=== PATIENT | male | born 1950 | race Caucasian/White ===

== ENCOUNTER → 2017-05-15 | Outpatient (CLI) | payer OTHER ==
[~2017-05-15] MED LIST: ACET-1256 PO; ALPR-411 PO; AMLO-110 PO; ASPI325T39 PO; CHOL20007 PO; CYAN100020 PO; MULT-190 PO; NAPR-1169 PO; PRAV20TA PO
== END | disposition home or self-care (01) ==
LOC: C.CTS 10:35
PROVIDERS: ATTEND Orthopaedic Surgery
DX: M75.102 Unspecified rotator cuff tear or rupture of left shoulder, not specified as traumatic (principal)

== ENCOUNTER 2017-06-16 04:59 | Inpatient (IN) | payer OTHER ==
[2017-05-15 11:47] VITALS: BMI 33.0
--- NOTE | 2017-05-15 12:24 | PAT Medication Instructions ---
Service Date May 15, 2017. Current Home Medication List Acetaminophen (Tylenol), 1,000 MG PO PRN Alprazolam (Xanax), 0.5 MG PO QID PRN for RN Amlodipine (Norvasc), 5 MG PO QPM Aspirin (Aspirin Ec), 325 MG PO PRN Cholecalciferol (Vitamin D3), 1 TAB PO QAM Cyanocobalamin (Vitamin B12), 500-1,000 MCG PO QAM Naproxen (Naprosyn), 500 MG PO BID Ocuvite Preservision (Ocuvite Preservision), 1 TAB PO QAM Pravastatin (Pravachol ), 80 MG PO HS Medication Instructions For Your Scheduled Surgery - Per surgeon's instructions: Aspirin (Aspirin Ec), 325 MG PO PRN Naproxen (Naprosyn), 500 MG PO BID - Hold the following medications the morning of surgery: Ocuvite Preservision (Ocuvite Preservision), 1 TAB PO QAM Cholecalciferol (Vitamin D3), 1 TAB PO QAM Cyanocobalamin (Vitamin B12), 500-1,000 MCG PO QAM - Take the following medications the morning of surgery with a sip of water OTHERWISE NOTHING TO EAT OR DRINK AFTER MIDNIGHT: Acetaminophen (Tylenol), 1,000 MG PO PRN (may take if needed up to 4 hours prior to surgery) Alprazolam (Xanax), 0.5 MG PO QID PRN - Take the following medications as scheduled the night before surgery: Pravastatin (Pravachol ), 80 MG PO HS Amlodipine (Norvasc), 5 MG PO QPM Acetaminophen (Tylenol), 1,000 MG PO PRN Alprazolam (Xanax), 0.5 MG PO QID PRN If you have any questions please call us at [phone] or [phone] or [phone]
--- NOTE | 2017-05-15 13:01 | DIAGNOSTIC IMAGING REPORT ---
CHEST 2 VIEWS ROUTINE CLINICAL HISTORY: pat preoperative evaluation COMPARISON STUDY: No previous studies for comparison. FINDINGS: The bones soft tissues and hemidiaphragms are normal. The cardiomediastinal silhouette is normal. The lungs are clear. The pulmonary vasculature is normal. IMPRESSION: Negative chest. The above report was generated using voice recognition software. It may contain grammatical, syntax or spelling errors. Electronically signed by: Cesar Garcia M.D. 05/15/2017 1:00 PM Dictated Date/Time: 05/15/2017 12:59 PM
[2017-05-15 13:19] LABS: URINE APPEARANCE CLEAR (CLEAR); URINE BILIRUBIN NEG (NEG); URINE COLOR YELLOW; URINE NITRITE NEG (NEG); URINE SPECIFIC GRAVITY 1.007 (1.000-1.030); UROBILINOGEN NEG (NEG)
[2017-05-15 13:20] LABS: BASO % 0.1 %; BASO ABS # 0.01 K/uL (0-0.2); COMPLETE YES; EOS % 1.6 %; HEMATOCRIT 42.7 % (42-52); IG% 0.2 %; LYMPH % 34.7 %; LYMPH ABS # 2.82 K/uL (1.2-3.4); MEAN CELL VOLUME 95.1 fL (80-100); MEAN CORPUSCULAR HEMOGLOBIN 30.3 pg (25-34); MEAN CORPUSCULAR HGB CONC 31.9 g/dl (32-36); MONO % 5.8 %; NEUT % 57.6 %; PLATELET COUNT 298 K/uL (130-400); RED BLOOD COUNT 4.49 M/uL (4.7-6.1); WHITE BLOOD COUNT 8.12 K/uL (4.8-10.8)
[2017-05-15 13:30] LABS: MANUAL MICROSCOPIC REQUIRED? NO; REVIEW REQ? NO
[2017-05-15 13:31] LABS: BUN/CREATININE RATIO 9.4 (10-20); CALCIUM 9.8 mg/dl (8.5-10.1); CREATININE 0.97 mg/dl (0.60-1.40); POTASSIUM 4.3 mmol/L (3.5-5.1)
[2017-05-15 13:42] LABS: INR 1.1 (0.9-1.1); PROTHROMBIN TIME (PATIENT) 11.7 SECONDS (9.0-12.0)
--- NOTE | 2017-06-15 18:31 | HISTORY & PHYSICAL EXAMINATION ---
DATE OF ADMISSION: 06/16/2017 CHIEF COMPLAINT: Left rotator cuff arthropathy. HISTORY OF PRESENT ILLNESS: Rigoberto is a pleasant 67-year-old retired male. He has been dealing with chronic bilateral shoulder pain for several years. [facility] and has been told that he had bilateral massive rotator cuff tears. His left shoulder is more symptomatic than his right. MRI of his left shoulder showed chronic full thickness tears and x-rays were diagnostic for rotator cuff arthropathy. After failing years of conservative treatment, he has elected to proceed with a reverse left total shoulder arthroplasty. PAST MEDICAL HISTORY: Significant for depression, hyperlipidemia, and hypertension. MEDICATIONS: Tylenol 1000 mg as needed, Xanax 0.5 mg 4 times a day, Norvasc 5 mg daily, aspirin 325 mg as needed, vitamin D 2000 units daily, vitamin B12 at 1000 mcg daily, Naprosyn 500 mg twice a day, Pravachol 80 mg at night and multivitamin. PAST SURGICAL HISTORY: Significant for 2 previous hernia repairs. ALLERGIES: ZOCOR. FAMILY HISTORY: Negative for heart disease and stroke. SOCIAL HISTORY: He is . He has 1-2 drinks a week. He smokes a pack of cigarettes a day. He is moderately active. REVIEW OF SYSTEMS: He complains of left shoulder pain and weakness. All other pertinent review of systems are negative. PHYSICAL EXAMINATION: GENERAL: He is awake, alert and oriented x3. He is in no apparent distress. He is very pleasant. HEENT: Pupils are equal, round and reactive to light. Extraocular motion intact. Oral mucosa is pink and moist. HEART: Regular rate per radial pulse. LUNGS: Jessica symmetrically bilaterally with no audible breath sounds. ABDOMEN: Soft, nontender, and nondistended. MUSCULOSKELETAL: On physical examination of the left shoulder, he has good range of motion with about 160 degrees of forward elevation and 160 degrees of abduction. He has 3/5 muscle strength with full can testing and 4/5 muscle strength with external rotation. Negative belly press test. Significant tenderness to palpation in the subacromial space. Positive Neer and Bone impingement signs. IMAGING DATA: X-rays of the left shoulder do show advanced rotator cuff arthropathy with superior migration of the humeral head and joint space narrowing and some osteophyte formation. MRI of the left shoulder shows a chronic full thickness tear involving the supraspinatus and subscapularis tendons with significant muscle atrophy. IMPRESSION: Rotator cuff arthropathy of the left shoulder. PLAN: We will proceed with a Biomet comprehensive reverse left total shoulder arthroplasty. Postoperatively, he will be placed in an arm sling and kept overnight for postoperative medical management.
[2017-06-16] VITALS (10 sets, daily range): BP systolic 98–134; BP diastolic 59–82; PULSE 62–81; TEMP 36.4–36.8; O2SAT 93–97; Ht 162.6 cm; Wt 87.5 kg
[~2017-06-16] VITALS: Ht 162.6 cm; Wt 87.5 kg
[2017-06-16] MEDS ORDERED: GABAPENTIN 300 MG CAP PO SCH (06:00)
[2017-06-16] MEDS ORDERED: CEFAZOLIN 2000MG IV PUSH 10 ML IV SCH (06:00)
[2017-06-16] MEDS ORDERED: LACTATED RINGER'S 1000ML IV SCH (06:00)
[2017-06-16] MEDS ORDERED: LACTATED RINGER'S 1000ML 1,000 ML IV SCH (06:00)
[2017-06-16] MEDS ORDERED: ACETAMINOPHEN 500 MG TAB PO SCH (06:00)
[2017-06-16] MEDS ORDERED: ROPIVACAINE 5MG/ML 30 ML 150 MG, BUPIVACAINE/EPINEPHR 0.5% MPF 30 ML, KETOROLAC TROMETH... INFIL SCH ×7 (06:00)
[2017-06-16] MEDS ORDERED: FAMOTIDINE 20 MG TAB PO SCH (06:00)
[2017-06-16] MEDS: TRANEXAMIC ACID INJ 1,000 MG in SODIUM CHLORIDE 0.9% 100ML 100 ML IV SCH ×2 (06:16→06:30)
[2017-06-16] MEDS ORDERED: ORTHO JOINT ANESTHETIC ONE (06:35)
[2017-06-16] MEDS ORDERED: BUPIVACAINE 0.25% 30 ML VIAL ONE (06:35)
[2017-06-16] MEDS ORDERED: EpINEphrine INJ 1MG/ML AMP 1 MG/ML AMP ONE (06:35)
[2017-06-16] MEDS ORDERED: BACITRACIN 50000 UNIT VIAL ONE (06:35)
[2017-06-16] MEDS ORDERED: DEXAMETHASONE SOD INJ 4 MG/ML VIAL ONE ×2 (06:35→07:40)
[2017-06-16] MEDS ORDERED: MIDAZOLAM HCL 1 MG/ML 2ML VIAL ONE (06:38)
[2017-06-16] MEDS ORDERED: FENTANYL CITRATE INJ 50 MCG/1 ML 2 ML VIAL ONE ×2 (06:43→07:37)
--- NOTE | 2017-06-16 06:50 | History & Physical Bridge Note ---
H&P Re-Evaluation Bridge Note: I have examined the patient, reviewed the History & Physical and in the interval since the performance of the History & Physical I have noted the following changes of clinical significance: No changes noted
[2017-06-16] MEDS ORDERED: ROCURONIUM BROMIDE 10 MG/ML 5 ML VIAL IV ONE (07:40)
[2017-06-16] MEDS ORDERED: PROPOFOL IV EMULSION 10 MG/ML 20 ML VIAL IV ONE (07:40)
[2017-06-16] MEDS ORDERED: PHENYLEPHRINE 100MCG/ML 5ML SYR ONE (07:40)
[2017-06-16] MEDS ORDERED: ONDANSETRON INJ 2 MG/ML 2 ML VIAL ONE (07:40)
[2017-06-16] MEDS ORDERED: HYDROmorphone INJ 2 MG/ML SYR/VIAL ONE (07:58)
[2017-06-16] MEDS ORDERED: SODIUM CHLORIDE 0.9% INJ 10 ML VIAL ONE (08:05)
[2017-06-16] MEDS ORDERED: FENTANYL CITRATE INJ 50 MCG/1 ML 2 ML VIAL IV PRN (08:15)
[2017-06-16] MEDS ORDERED: ONDANSETRON INJ 2 MG/ML 2 ML VIAL IV PRN ×2 (08:15→08:30)
[2017-06-16] MEDS ORDERED: EpHEDrine SULFATE INJ 50 MG/ML AMP IV PRN (08:15)
[2017-06-16] MEDS ORDERED: ATROPINE SULFATE 0.1 MG/ML 5ML SYR IV PRN (08:15)
[2017-06-16] MEDS ORDERED: HYDROmorphone INJ 1 MG/ML SYR IV PRN (08:15)
[2017-06-16] MEDS ORDERED: PROMETHAZINE HCL INJ 6.25 MG in SODIUM CHLORIDE 0.9% 50ML 50 ML IV PRN (08:15)
[2017-06-16] MEDS ORDERED: NEOSTIGMINE METHYLSULFATE 5 MG/5 ML SYR ONE (08:17)
[2017-06-16] MEDS ORDERED: GLYCOPYRROLATE INJ 0.2 MG/ML VIAL ONE (08:17)
--- NOTE | 2017-06-16 08:25 | [facility] Post Operative Brief Note ---
Immediate Operative Summary Operative Date Jun 16, 2017. Pre-Operative Diagnosis Rotator Cuff Arthropathy of the Left Shoulder Post-Operative Diagnosis Rotator Cuff Arthropathy of the Left Shoulder Procedure(s) Performed Left Reverse Total Shoulder Arthroplasty--Uncemented Surgeon Dr. Guaman Utilization Management Manager Surgeon(s) MERVIN Crews Estimated Blood Loss 150 ml Findings as above Specimens A. Portion of Left Humeral Head Complication(s) None Disposition Recovery Room / PACU
[2017-06-16] MEDS ORDERED: SOD PHOSPHATE/SOD BIPHOSPHATE ENEMA 132 ML BTL PR PRN (08:30)
[2017-06-16] MEDS ORDERED: OXYCODONE HCL IR 5 MG TAB (IMMEDIATE RELEASE) PO PRN (08:30)
[2017-06-16] MEDS ORDERED: ALPRAZOLAM 0.5 MG TAB PO PRN (08:30)
[2017-06-16] MEDS ORDERED: MAGNESIUM HYDROXIDE SUSP 30 ML UDC PO PRN (08:30)
[2017-06-16] MEDS ORDERED: METOCLOPRAMIDE HCL INJ 5 MG/ML 2 ML VIAL IV PRN (08:30)
[2017-06-16] MEDS ORDERED: MoRPHine SULFATE 2 MG/ML CARP IV PRN (08:30)
[2017-06-16] MEDS ORDERED: NALOXONE HCL 0.4 MG/1 ML VIAL/CARP IV PRN (08:30)
[2017-06-16] MEDS ORDERED: ASPIRIN 325 MG ECTAB PO SCH (08:30)
[2017-06-16] MEDS ORDERED: BISACODYL 10 MG SUPP PR PRN (08:30)
--- NOTE | 2017-06-16 08:47 | OPERATIVE REPORT ---
DATE OF OPERATION: 06/16/2017 PREOPERATIVE DIAGNOSIS: Cuff arthropathy of the left shoulder. POSTOPERATIVE DIAGNOSIS: Same. PROCEDURE: Reverse left total shoulder arthroplasty. SURGEON: Dr. Martin Guaman. SCULLION CHIEF: Chacho Grewal PA-C, whose assistance was necessary for positioning the arm and helping with retraction. ANESTHESIA: General with a left interscalene nerve block. COMPLICATIONS: None. CONDITION: Stable to PACU. IMPLANTS USED: I used a Biomet comprehensive left reverse shoulder arthroplasty system with a size 12 mini pressfit stem, a 25 mm mini baseplate with a single 35 mm central screw, and 2 peripheral locking screws, a 36 mm standard eccentric glenosphere and a standard humeral tray and bearing. INDICATIONS: Rigoberto is a pleasant 67-year-old male who presented to my office with bilateral shoulder pain. The left was worse than the right. X-rays showed advanced cuff arthropathy of the right side but the left side did not look bad on x-ray. I got MRI showed a chronic retracted tear of the subscapularis and supraspinatus. After failing extensive conservative treatment including multiple injections given his pain levels we elected to proceed with a reverse shoulder arthroplasty. OPERATION AND FINDINGS: On 06/16/2017 he arrived at [facility] for the above procedure. He was seen in the preoperative holding area and the operative extremity was identified and signed. He was given a preoperative antibiotic and a left interscalene nerve block. He was taken back to the operating room, laid on the table in supine position and put under general anesthesia. He was put into the beachchair position. The left shoulder was prepped and draped in sterile fashion. Time-out was done and the patient and operative extremity was properly identified. A deltopectoral approach was used. Dissection was taken down through the fascia and the anterior shoulder was exposed. The long head of the biceps tendon was tenodesed to the upper border of the pec major. What was left of the subscapularis was peeled off the lesser tuberosity. The supraspinatus had been torn. The infraspinatus and teres minor were intact. The proximal humerus was exposed. Sequential reaming up to a size 12 reamer was done. Off that reamer, a proximal humeral resection guide was placed and the proximal humerus was resected at 135 degrees of inclination and 20 degrees of retroversion. The glenoid was then exposed. Time was spent doing a complete circumferential capsular and labral release. The Biomet signature guide was then snapped onto the anterior aspect of the glenoid and a guide pin was placed in reverse shoulder arthroplasty hole. A 25 mm mini base plate was then reamed and the final baseplate was impacted into place. A 35 mm central screw was placed followed by superior and inferior locking screws. All screws got excellent purchase. A 36 mm eccentric glenosphere was then impacted into place. The proximal humerus was then exposed. Sequential broaching up to a size 12 broach was done. Off that broach, a standard humeral tray was placed. The shoulder was reduced, brought through a full range of motion and felt to be stable. The trials were then removed and the final size 12 mini implant was impacted into place. A standard humeral bearing was snapped onto a humeral tray and the ring lock mechanism was engaged. The humeral tray was then impacted onto the humeral stem and the shoulder was reduced. The subscapularis was then tenodesed back to the lesser tuberosity with transosseous FiberWire sutures. All surrounding soft tissues were injected with 100 mL orthopedic pain control cocktail. The joint was then irrigated with 3 liters of normal saline solution with bacitracin. The shoulder was brought through a full range of motion and felt good. The axillary nerve was palpated. Hemostasis was controlled. The cephalic vein was intact. The skin was then closed with 2-0 Vicryl and 3-0 V-Loc suture and sourav. He was placed in a soft dressing and a regular arm sling. He was then extubated, transferred to a litter and taken to the postanesthesia care unit in stable condition. He tolerated the procedure well. I attest to the content of the Intraoperative Record and any orders documented therein. Any exception s are noted below.
--- NOTE | 2017-06-16 09:25 | DIAGNOSTIC IMAGING REPORT ---
L SHOULDER MIN 2 VIEWS ROUTINE CLINICAL HISTORY: Post shoulder surgery COMPARISON STUDY: Left shoulder CT 05/15/2017. FINDINGS: The patient is status post a reverse left total shoulder arthroplasty. The hardware is intact. No fracture or dislocation. Skin sourav and surgical drains are in place. IMPRESSION: Status post reverse left total shoulder arthroplasty. No evidence for hardware complication. Electronically signed by: Shimon Rogers M.D. 06/16/2017 9:24 AM Dictated Date/Time: 06/16/2017 9:23 AM
[2017-06-16] MEDS ORDERED: ASPIRIN 325 MG ECTAB PO PRN (10:00)
--- NOTE | 2017-06-16 10:06 | Anesthesiology Progress Note ---
Anesthesia Post Op Note Date & Time Jun 16, 2017 at 10:05 Vital Signs Pain Intensity: 0 Vital Signs Past 12 Hours Date Time Temp Pulse Resp B/P (MAP) Pulse Ox O2 Delivery O2 Flow Rate FiO2 06/16/17 09:25 36.4 64 20 103/63 95 Nasal Cannula 2 06/16/17 09:15 70 22 105/64 94 Nasal Cannula 2 06/16/17 09:05 61 24 104/58 97 Oxymask 10 06/16/17 08:55 66 16 113/67 97 Oxymask 10 06/16/17 08:46 36.8 71 21 118/60 94 Oxymask 10 06/16/17 05:34 36.4 62 18 134/82 97 Room Air Notes Mental Status: alert / awake / arousable, participated in evaluation Pt Amnestic to Procedure: Yes Nausea / Vomiting: adequately controlled Pain: adequately controlled Airway Patency, RR, SpO2: stable & adequate BP & HR: stable & adequate Hydration State: stable & adequate Neuraxial Anesthesia: was administered, sensory block is resolving Anesthetic Complications: no major complications apparent Block working well in pacu
[2017-06-16] MEDS: POTASSIUM CHLORIDE INJ 10 MEQ in SODIUM CHLORIDE 0.9% 1000ML 1,000 ML IV SCH ×2 (10:40→20:48)
[2017-06-16] MEDS: DOCUSATE SODIUM 100 MG CAP PO SCH ×2 (10:40→20:49)
[2017-06-16] MEDS: CHOLECALCIFEROL 1000 INTER.UNIT TAB PO SCH (10:40)
[2017-06-16] MEDS: PANTOprazole SOD 40 MG TAB PO SCH (10:41)
[2017-06-16] MEDS: MULTIVITAMIN TAB PO SCH (10:41)
[2017-06-16] MEDS: KETOROLAC TROMETHAMINE 30 MG/ML VIAL IV. SCH ×3 (11:41→23:28)
[2017-06-16] MEDS: ACETAMINOPHEN IV 1,000 MG in EMPTY BAG 0 ML IV SCH ×2 (13:36→22:18)
[2017-06-16] MEDS: CEFAZOLIN IV 2,000 MG in SYRINGE 0 ML IV SCH ×2 (14:11→22:46)
[2017-06-16] MEDS ORDERED: AMLODIPINE BESYLATE 5 MG TAB PO SCH (21:00)
[2017-06-16] MEDS ORDERED: PRAVASTATIN SOD 40 MG TAB PO SCH (21:00)
[2017-06-16] MEDS ORDERED: SENNA 8.6 MG TAB PO SCH (21:00)
[2017-06-17 03:55] VITALS: BP 118/67; PULSE 71; TEMP 36.8; O2SAT 96
[2017-06-17 06:07] LABS: HEMATOCRIT 32.8 % (42-52); MEAN CELL VOLUME 92.7 fL (80-100); MEAN CORPUSCULAR HEMOGLOBIN 31.1 pg (25-34); MEAN CORPUSCULAR HGB CONC 33.5 g/dl (32-36); MEAN PLATELET VOLUME 11.2 fL (7.4-10.4); PLATELET COUNT 208 K/uL (130-400); RED BLOOD COUNT 3.54 M/uL (4.7-6.1); WHITE BLOOD COUNT 17.48 K/uL (4.8-10.8)
[2017-06-17] MEDS: KETOROLAC TROMETHAMINE 30 MG/ML VIAL IV. SCH (06:24)
[2017-06-17] MEDS: ACETAMINOPHEN IV 1,000 MG in EMPTY BAG 0 ML IV SCH (06:24)
[2017-06-17 06:35] LABS: BUN/CREATININE RATIO 15.8 (10-20); CALCIUM 8.5 mg/dl (8.5-10.1); CREATININE 0.93 mg/dl (0.60-1.40)
[2017-06-17] MEDS: POTASSIUM CHLORIDE INJ 10 MEQ in SODIUM CHLORIDE 0.9% 1000ML 1,000 ML IV SCH (07:23)
[2017-06-17] MEDS ORDERED: RXC5 PO (07:32)
--- NOTE | 2017-06-17 07:33 | Discharge Instructions ---
Discharge Instructions Date of Service Jun 17, 2017. Admission Reason for Admission: Left Shoulder Rotator Cuff Arthropathy Discharge Discharge Diagnosis / Problem: Left Reverse Total Shoulder Discharge Goals Goal(s): Decrease discomfort, Improve function Activity Recommendations Activity Limitations: as noted below . Instructions / Follow-Up Instructions / Follow-Up Activity and Therapy Recommendations: * Wear your sling for 3 weeks, unless otherwise instructed. You may remove your sling to shower and to dress, but otherwise, you should be in your sling at all times, including while sleeping * The shoulder replacement is very stable and you can use your hand while in the sling * Physical Therapy should start about 3-5 days from your day of surgery. Therapy will last about 8-12 weeks * You were shown a series of exercises in the hospital. Do these exercises daily including the exercises you were shown in physical therapy. Medications: * Narcotic You will likely be sent home from the hospital with a prescription for the narcotic pain medication that worked best throughout your stay. * Other medications may be prescribed for specific circumstances. If you have any questions, please call the office at . * Resume previous home medications unless otherwise instructed Showering: You may shower 5 days from the day of surgery. Let the soapy shower water run over the sourav. Do not scrub or soak the incision. Things To Watch For: * Drainage from the incision site that occurs more than one week after your surgery. * Increased redness at the incision site. * Fever above 102 degrees Fahrenheit. * Unusual chest pain or shortness of breath. * Call [facility] at with any of the above problems Follow-Up Visit: Follow-up with Dr. Guaman 2-3 weeks after your day of surgery. An appointment was probably scheduled when you signed-up for surgery in the office. If you have any questions call Office Instructions: More detailed instructions as well as Frequently Asked Questions were provided in a folder by our office when you signed-up for surgery. Please review these instructions when you get home. If you have any further questions or concerns, please feel free to call the office at [phone] Current Hospital Diet Patient's current hospital diet: Regular Diet Discharge Diet Recommended Diet: Regular Diet Procedures Procedures Performed: Left Reverse Total Shoulder Arthroplasty--Uncemented Pending Studies Studies pending at discharge: no Medical Emergencies . Who to Call and When: Medical Emergencies: If at any time you feel your situation is an emergency, please call 911 immediately. . Non-Emergent Contact Non-Emergency issues call your: Surgeon Call Non-Emergent contact if: wound has increased drainage, wound has increased redness . "Provider Documentation" section prepared by Martin Guaman. . VTE Core Measure Inpt VTE Proph given/why not?: Treatment not indicated
[2017-06-17 07:42] VITALS: BP 108/64; PULSE 51; TEMP 36.8; O2SAT 96
--- NOTE | 2017-06-17 07:57 | PROGRESS NOTE ---
DATE: 06/17/2017 CHIEF COMPLAINT: Status post reverse left shoulder arthroplasty postop day #1. PROGRESS: Rigoberto was seen and examined at bedside today. Overall, he is doing very well. He says he really has no pain in his shoulder. He was able to get some sleep last night. He is feeling good and has no complaints. PHYSICAL EXAMINATION: LEFT SHOULDER: The dressing is clean and dry and the drain is to suction. He is wearing sling as instructed. His radial, median and ulnar nerves were checked and intact at his wrist. His axillary nerve was not checked yet. LABORATORY DATA: He has an H&H today of 11.0 and 32.8. His glucose is 152. His vital signs are all stable on room air. He is voiding on his own. X-rays postoperatively of the left shoulder show the prosthesis to be in anatomic alignment without any evidence of fracture, dislocation or loosening. IMPRESSION: Status post reverse left shoulder arthroplasty postop day #1. PLAN: At this point, he is doing very well and happy with his progress. He will be seen by physical therapy today to do hand, wrist, elbow and pendulum exercises. The nursing staff can change the dressing, pull the drain and discharge him to home later this morning.
--- NOTE | 2017-06-17 08:03 | DISCHARGE SUMMARY ---
DISCHARGE DIAGNOSIS: Rotator cuff arthropathy of the left shoulder. PROCEDURE: Left reverse shoulder arthroplasty on 06/16/[address] Martin Guaman. DISCHARGE INSTRUCTIONS: 1. Oxycodone 5-10 mg every 4 hours as needed for pain. 2. Left arm sling for 3 weeks. 3. Follow up with Dr. Guaman in 2 weeks. 4. Call the office of Dr. Guaman with any questions or concerns. 5. Tylenol 1000 mg as needed. 6. Xanax 0.5 mg 4 times a day as needed. 7. Norvasc 5 mg daily. 8. Aspirin 325 mg as needed. 9. Vitamin D 2000 units daily. 10. Vitamin B12 at 1000 mcg daily. 11. Naprosyn 500 mg twice a day. 12. Ocuvite daily. 13. Pravachol 80 mg at night. HOSPITAL COURSE: Rigoberto is a pleasant 67-year-old male who presented to my office with chronic bilateral shoulder pain, left worse than right. X-rays and MRI of the left shoulder were diagnostic for cuff arthropathy with unrepairable rotator cuff tear. After failing conservative treatment, he elected to undergo a reverse left shoulder arthroplasty. On 06/16/2017, he arrived at [facility] and underwent a reverse left shoulder arthroplasty without complications. He had a general anesthetic and a left interscalene nerve block. Postoperatively, he was placed in an arm sling and discharged to general orthopedic floor. His hospital course was uneventful. On postop day #1, his H&H was stable at 11.0 and 32.8. He was not having much pain. He was able to participate with physical therapy, doing hand, wrist, elbow and pendulum exercises. The nursing staff changed the dressing, pulled the drain, and he was subsequently discharged to home with the above instructions.
[2017-06-17] MEDS: MULTIVITAMIN TAB PO SCH (10:04)
[2017-06-17] MEDS: PANTOprazole SOD 40 MG TAB PO SCH (10:04)
[2017-06-17] MEDS: DOCUSATE SODIUM 100 MG CAP PO SCH (10:04)
[2017-06-17 11:14] VITALS: BP 108/64; PULSE 51; TEMP 36.8; O2SAT 96
[2017-06-17] MEDS: CHOLECALCIFEROL 1000 INTER.UNIT TAB PO SCH (11:23)
== END 2017-06-17 11:40 | disposition home or self-care (01) | DRG 483 ==
LOC: C.ACU 04:59 → C.3E 06:44 → ENRESERV 09:03
PROVIDERS: ADMIT Orthopaedic Surgery; ATTEND Orthopaedic Surgery
PROC: 0RRK00Z Replacement of Left Shoulder Joint with Reverse Ball and Socket Synthetic Substitute, Open Approach (ICD-10-PCS; principal; 2017-06-16 07:00)
DX: M75.122 Complete rotator cuff tear or rupture of left shoulder, not specified as traumatic (principal); I10 Essential (primary) hypertension; E78.5 Hyperlipidemia, unspecified; F17.210 Nicotine dependence, cigarettes, uncomplicated; Z79.1 Long term (current) use of non-steroidal anti-inflammatories (NSAID); Z79.899 Other long term (current) drug therapy

== ENCOUNTER 2023-01-20 07:25 | Observation (INO) ==
--- NOTE | 2022-12-15 09:34 | PAT Medication Instructions ---
Medication Instructions Date of Service December 15, 2022 Home Medications alprazolam 0.5 mg tablet 0.5 mg PO QID PRN Anxiety amlodipine 10 mg tablet 10 mg PO QAM cyclobenzaprine 10 mg tablet 10 mg PO HS PRN muscle spasms meloxicam 15 mg tablet 7.5 mg PO BID pravastatin 80 mg tablet 80 mg PO QAM PreserVision AREDS-2 1 tab PO BID ASK your surgeon for instructions meloxicam 15 mg tablet 7.5 mg PO BID STOP taking 2 weeks before surgery (or as soon as possible if surgery is within 2 weeks) PreserVision AREDS-2 1 tab PO BID Take morning of surgery With a small sip of water, OTHERWISE NOTHING TO EAT OR DRINK AFTER MIDNIGHT: alprazolam 0.5 mg tablet 0.5 mg PO QID PRN Anxiety (if needed) amlodipine 10 mg tablet 10 mg PO QAM pravastatin 80 mg tablet 80 mg PO QAM Take evening before surgery alprazolam 0.5 mg tablet 0.5 mg PO QID PRN Anxiety (if needed) cyclobenzaprine 10 mg tablet 10 mg PO HS PRN muscle spasms (if needed) Other Notes If you have any questions please call us at [phone] or [phone] or [phone] or [phone]
--- NOTE | 2022-12-20 12:04 | Anesthesiology Consultation ---
Date of Service December 20, 2022 Assessment & Plan (1) Encounter for pre-operative examination: - COVID screening: Per assessment on 12/20: No known COVID-19 positive contacts or current COVID-19 related symptoms. Travel screen negative. Patient vaccinated. At surgeon discretion if preop Covid testing being done. - S/P Left reverse TSA (06/16/17): Grade 2 view, Glidescope#4, ETT 8.0 + PNB at [facility] - Outpatient joint assessment: Pt currently scheduled for inpatient pathway. If surgeon requests review for outpatient joint pathway, patient is an acceptable candidate for outpatient joint program from anesthesia standpoint. Chart Review Chart Review: Acceptable Risk for Surgery and Patient seen in Pre Admission Testing Teaching & Discussion Pre-Anesthesia Teaching/Discussion Notes: Instructed NPO after midnight before surgery,except medications with 15 cc of water. Medication instructions provided according to the PAT guidelines. History Surgery Operation Date: 01/20/23 09:30 Proposed Procedures p Left Total Knee Arthroplasty - Martin Guaman, DO Height/Weight Height: 5 ft 4 in Weight: 89.2 kg Allergies Allergy/AdvReac Type Severity Reaction Status Date / Time simvastatin Allergy Unknown JOINT ACHES Verified 11/30/22 08:56 Medications Home Medications Medication Instructions Recorded Confirmed Last Taken alprazolam 0.5 mg tablet 0.5 mg PO QID PRN Anxiety 05/11/21 11/30/22 Unknown amlodipine 10 mg tablet 10 mg PO QAM 05/11/21 11/30/22 Unknown cyclobenzaprine 10 mg tablet 10 mg PO HS PRN muscle spasms 05/11/21 11/30/22 Unknown meloxicam 15 mg tablet 7.5 mg PO BID 05/11/21 11/30/22 Unknown pravastatin 80 mg tablet 80 mg PO QAM 05/11/21 11/30/22 Unknown vit C 250 mg-vit E 90 mg-zinc 40 1 tab PO BID 11/30/22 11/30/22 Unknown mg-copper 1 [id number] capsule (PreserVision AREDS-2) Past Medical History Medical History Anxiety HTN (hypertension) Hyperlipidemia 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, bilateral Pulmonary nodule monitoring Sleep apnea CPAP (compliant) Exercise / Class Metabolic Activity II 4-5 Yardwork/Stairs/Walk up hill Past Family History Family History Mother Hypertension Hearing loss Father Liver cancer Other No family history of adverse response to anesthesia No family history of bleeding disorder Past Surgical History Surgical History History of esophagogastroduodenoscopy (EGD) History of hernia repair History of placement of ear tubes History of shoulder replacement Left reverse TSA (06/16/17): Grade 2 view, Glidescope#4, ETT 8.0 + PNB at [facility] Hx of appendectomy Hx of bilateral cataract extraction Hx of colonoscopy Past Anesthesia History No Hx of Anesthesia Complications and No Family Hx of Anesthesia Complications History of PONV No Hx of PONV and No Hx of Motion Sickness Social History Smoking Status: Current every day smoker tobacco type: cigarettes Smoking cigarettes per day: 10 cigs/day Do You Dip or Chew Tobacco: No Hx Alcohol Use: No Hx Substance Use: No substance use type: does not use Review of Systems Patient denies chest pain, shortness of breath, dyspnea on exertion, fever, chills, cough, wheezing, palpitations. Physical Exam Vital Signs VITALS BP 136/75 P 79 TEMP 98.3 SP02 97%RA RESP 18 PHYSICAL Decreased cervical extension range of motion. Full TMJ range of motion. TMD 4 finger breaths Mallampati Score 3 Dentition: intact Lungs: clear throughout to auscultation Cardiac: regular rate and rhythm, no murmurs noted Spine: normal Carotid arteries: negative bruit Extremities: no LE edema Short sousa, thick neck Lab Results Anesthesia Preop Results Results Anesthesia Widget: WBC 9.36 K/ul (4.8-10.8) 12/20/22 Hgb 14.9 g/dl (14.0-18.0) 12/20/22 Hct 43.3 % (42.0-52.0) 12/20/22 Plt 238 K/uL (130-400) 12/20/22 Na 137 mmol/L (136-145) 12/20/22 K 3.7 mmol/L (3.5-5.1) 12/20/22 Cl 108 mmol/L (98-107) H 12/20/22 CO2 25 mmol/L (21-32) 12/20/22 BUN 12 mg/dl (6-23) 12/20/22 Creat 0.77 mg/dl (0.6-1.4) 12/20/22 Glucose Level 98 mg/dl (70-99(Fasting)) 12/20/22 PT 11.7 Seconds (9.0-12.0) 12/20/22 PTT 25.6 Seconds (21.0-31.0) 12/20/22 INR 1.1 (0.9-1.1) 12/20/22 Blood Type A Positive 12/20/22 Antibody Screen NEGATIVE 12/20/22 Testing Electrocardiogram Date: 12/20/22 NSR at 84bpm. NS STA. Chest X-Ray Date: 12/20/22 FINDINGS: PA and lateral chest radiographs are compared to study dated 05/15/2017. The cardiomediastinal silhouette is unremarkable noting atherosclerotic calcification of the thoracic aorta. The lungs and pleural spaces are clear noting mild bibasilar scarring/atelectasis. There is no pneumothorax. The skeletal structures are osteopenic. There are chronic/healed right-sided rib fractures. A left shoulder arthroplasty is in place. Advanced arthritic change is noted in the right shoulder. Spondylotic change is seen throughout the thoracic spine. IMPRESSION: No active disease in the chest. COVID-19 Risk Screen Screening Information COVID-19 Screen Date: 12/20/22 Exposure 21 Days Family/Household +COVID Last 21 Days: No Exposure 10 Days Any COVID Exposure Last 10 Days: No Symptoms Last 10 Days Experienced COVID Sx Last 10 Days: No + COVID 0-90 Days COVID + in Last 0-90 Days: No
--- NOTE | 2023-01-19 06:51 | History & Physical Report ---
Date of Service January 19, 2023 Assessment & Plan (1) Osteoarthritis of left knee: We will proceed with a left total knee arthroplasty. Postoperatively he will be started on aspirin for DVT prophylaxis and kept overnight in the hospital for postop medical management. He was hoping to have the hospital set up home health before discharge. History of Present Illness Chief Complaint: Osteoarthritis of the left knee. Primary Care Provider: Torres Moreno MD Rigoberto is a pleasant 72-year-old male who has been dealing with chronic increasing bilateral knee pain, left worse than right. It has been really bad for the past 6 months. He has been treated at the [place]. I gave him an injection at the last visit, which helped a little bit with his pain but not much. He is stillstruggling with his knee. X-rays show advanced osteoarthritis. After failing conservative treatment, he has elected to proceed with a left total knee arthroplasty. . Allergies Allergy/AdvReac Type Severity Reaction Status Date / Time simvastatin Allergy Unknown JOINT ACHES Verified 11/30/22 08:56 Home Medications Medication Instructions Recorded Confirmed Type alprazolam 0.5 mg tablet 0.5 mg PO QID PRN Anxiety 05/11/21 11/30/22 History amlodipine 10 mg tablet 10 mg PO QAM 05/11/21 11/30/22 History cyclobenzaprine 10 mg tablet 10 mg PO HS PRN muscle spasms 05/11/21 11/30/22 History meloxicam 15 mg tablet 7.5 mg PO BID 05/11/21 11/30/22 History pravastatin 80 mg tablet 80 mg PO QAM 05/11/21 11/30/22 History vit C 250 mg-vit E 90 mg-zinc 40 1 tab PO BID 11/30/22 11/30/22 History mg-copper 1 [id number] capsule (PreserVision AREDS-2) Past Med/Surg History Medical History Anxiety HTN (hypertension) Hyperlipidemia 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, bilateral Pulmonary nodule monitoring Sleep apnea CPAP (compliant) Surgical History History of esophagogastroduodenoscopy (EGD) History of hernia repair History of placement of ear tubes History of shoulder replacement Left reverse TSA (06/16/17): Grade 2 view, Glidescope#4, ETT 8.0 + PNB at [facility] Hx of appendectomy Hx of bilateral cataract extraction Hx of colonoscopy Family History Mother Hypertension Hearing loss Father Liver cancer Other No family history of adverse response to anesthesia No family history of bleeding disorder Social History Smoking Status: Current every day smoker Tobacco Type: Cigarettes Age Started Using Tobacco: 17; packs per day: 1; Cigarettes Per Day: 10 cigs/day; Second Hand Exposure: No; Do You Dip or Chew Tobacco: No; Hx Alcohol Use: No Hx Substance Use: No Preferred Language: Czech Communication Ability: Effective Vp [employer] Marketing Required: No Beliefs That Will Affect Care: None marital status: Current Living Situation: Spouse current occupational status: retired Feels Safe at Home: Yes Assistive Devices: CPAP, Glasses and Hearing Aid - Bilateral Review of Systems All systems reviewed & are unremarkable except as noted in HPI & below. Physical Exam On physical examination of left knee, he has slight varus deformity. Is a 2+ effusion. He is range of motion 0 to 120 degrees. He has pain over the medial joint line.. Constitutional WD/WN, vitals as above Eyes PERRL, conjunctivae normal, anicteric sclerae ENMT external ear and nose normal, oropharynx normal Neck trachea midline, no thyromegaly Respiratory normal respiratory effort, lungs clear to auscultation Cardiovascular RRR, no murmur, no edema Gastrointestinal (Abdomen) normal bowel sounds, soft, nontender, no hepatosplenomegaly Skin no rashes, warm and dry Psychiatric A+Ox3, euthymic affect Results & Data Results & Data Laboratory Results . Diagnostic Findings X-rays of the left knee do show medial compartment arthritis with joint space narrowing, osteophyte formation, and [id number] articulation.. PG Care Time/CCT Total # of Minutes Spent Total Time Spent with Patient: Total time spent is greater than 50% in coordination of care (as documented) at patient's floor/unit and/or counseling patient: Coding Level of Care Code None Diagnoses Osteoarthritis of left knee M17.12
[~2023-01-20 07:25] MED LIST changes: -ACET-1256 PO; +ACETAMINOPHEN 500 MG TAB PO SCH; -ALPR-411 PO; -AMLO-110 PO; -ASPI325T39 PO; +BUPIVACAINE 0.5 % 5 MG/1 ML PF 10ML VIAL ONE; -CHOL20007 PO; -CYAN100020 PO; +FAMOTIDINE 20 MG TAB PO SCH; +GABAPENTIN 600 MG DOSE PO SCH; +LR 500ML BOLUS, THEN 15ML/HR IV SCH; +LR 60ML/HR IV SCH; -MULT-190 PO; -NAPR-1169 PO; +ORTHO JOINT MIX INFIL SCH; -PRAV20TA PO; +ROPIVACAINE 0.5% 5 MG/ML 30 ML VIAL ONE; +TRANEXAMIC ACID 1,000 MG **IV Intra-op IV SCH; +TRANEXAMIC ACID 1,000 MG **IV Pre-op IV SCH; +ceFAZolin 2000MG 2,000 MG/15 ML SYR IV SCH; +dexAMETHasone 4 MG TAB PO SCH
[2023-01-20] MEDS ORDERED: MIDAZOLAM HCL 1 MG/ML 2ML VIAL ONE (08:44)
[2023-01-20] MEDS ORDERED: PROPOFOL IV EMULSION 10 MG/ML 20 ML VIAL IV ONE ×3 (08:44→12:29)
[2023-01-20] MEDS ORDERED: LIDOCAINE 2% 2 ML VIAL/AMP(20MG/ML) INFIL ONE (08:44)
[2023-01-20] MEDS ORDERED: fentaNYL citrate PF 100 MCG/2 ML VIAL ONE (08:44)
--- NOTE | 2023-01-20 09:36 | History & Physical Bridge Note ---
Date of Service January 20, 2023 History & Physical Bridge Note I have examined the patient, reviewed the History & Physical and in the interval since the performance of the History & Physical I have noted the following changes of clinical significance: no changes noted
[2023-01-20] MEDS ORDERED: ORTHO JOINT ANESTHETIC ONE (10:22)
[2023-01-20] MEDS ORDERED: ONDANSETRON INJ 2 MG/ML 2 ML VIAL IV PRN ×2 (10:26→13:42)
[2023-01-20] MEDS ORDERED: ATROPINE SULFATE 0.1 MG/ML 10ML SYR IV PRN (10:26)
[2023-01-20] MEDS ORDERED: fentaNYL citrate PF 100 MCG/2 ML VIAL IV PRN (10:26)
[2023-01-20] MEDS ORDERED: PROMETHAZINE HCL 12.5 MG in SODIUM CHLORIDE 0.9% 50 ML IV PRN (10:26)
[2023-01-20] MEDS ORDERED: ePHEDrine sulfate 50 MG/ML AMP IV PRN (10:26)
[2023-01-20] MEDS ORDERED: HYDROmorphone INJ 2 MG/ML SYR/VIAL IV PRN (10:26)
[2023-01-20] MEDS ORDERED: ePHEDrine sulfate 50 MG/ML SYR ONE (11:17)
--- NOTE | 2023-01-20 12:15 | Operative Report ---
PG Post Operative Report Pre & Post Diagnosis Operation Date: 01/20/23 10:00 Pre-Op Diagnosis: Osteoarthritis of left knee Post-Op Diagnosis: Osteoarthritis of left knee I identified the patient and participated in the time-out.: Yes Procedure Operation Date: 01/20/23 10:00 Actual Procedures p Left Total Knee Arthroplasty(Left) - Martin Guaman DO Surgeon Martin Guaman DO Substance Abuse Prevention Coordinator Martin Tate PA-C Estimated Blood Loss 30 Findings Consistent with Post-Op Diagnosis Specimens Left femoral and tibial bone Description of Procedure Implants used: I used a [employer] Person[employer] total knee arthroplasty system with a size 8 standard PS femur, E tibia, 34 oval patella, and a size 12 CPS polyethylene bearing. All components were cemented in place with Biomet cement. Rigoberto el [facility] for the above procedure. He was seen in the preoperative holding area and the operative extremity was identified and signed. He was given a preoperative antibiotic, TXA, a spinal anesthetic and an adductor nerve block. He was taken back to the operating room and laid on the table in supine position. He was given basic sedation. The operative knee was then prepped and draped in sterile fashion. A timeout was done, and the patient and the operative extremity was properly identified. A midline incision was made directly over the patella. Dissection was taken down to the extensor mechanism. A midvastus arthrotomy was used. The medial retinaculum was released and the fat pad was mostly excised. The knee was flexed and the ACL, PCL, and meniscus were removed. A drill was sent down the center of the femoral canal followed by an intramedullary denisha. Off that denisha a distal femoral cutting block was placed. 9 mm was resected off the distal femur at 5 of valgus. A posterior referencing AP sizing guide was then placed on the distal femur. The femur measured to be a size 8. 2 drill holes were placed in 3 of external rotation. A 4-in-1 cutting block was then impacted into place. Anterior, posterior, and chamfer cuts were then made. The proximal tibia was then exposed. An external tibial alignment guide was placed. A tibial cut guide was then anchored in place and the proximal tibia was then resected. The posterior aspect of the knee was then opened up and any additional meniscus fragments and osteophytes were removed. The tibia measured to be a size D. The tibial plate was then placed in the appropriate rotation and the tibia was drilled and punched. Trial components were then placed. I used a size 12 CPS polyethylene insert. The knee was brought through a full range of motion and felt to be stable. The peg holes for the femoral component were then drilled. The patella was then everted and 9 mm was resected off the posterior aspect of the patella. The patella measured to be a size 34 oval. 3 peg holes were then drilled. A trial patella was placed. The knee was once again brought through a full range of motion and felt to be stable. Trial components were then removed. The surrounding soft tissues were injected with 100 cc of an orthopedic pain control cocktail. All components were then cemented into place with Biomet cement. The final polyethylene insert was then snapped into place. Once cement was dry the tourniquet was deflated. Hemostas is was obtained. A dilute betadyne lavage was then done for 3 minutes. The joint was then irrigated with normal saline solution. The midvastus arthrotomy was then closed with #1 Vicryl suture. The skin was closed with 2-0 Vicryl, 3- 0V lock suture, and sourav. A soft compressive dressing was placed. He was then transferred to a hospital bed and taken to the postanesthesia care unit in stable condition. He tolerated the procedure well. Martin Tate PA-C, was present for the entire procedure. He was critical for patient positioning, prepping, draping, retraction exposure, wound closure and application of sterile dressing. I attest to the content of the Intraoperative Record and any orders documented therein. Any exceptions are noted below.
--- NOTE | 2023-01-20 13:14 | XRay Report ---
LEFT KNEE 2 VIEWS History: Left total knee arthroplasty. Degenerative arthritis. Postop. FINDINGS: The patient is status post a left total knee arthroplasty. The hardware is intact. No fract ure or dislocation. Skin sourav are in place. IMPRESSION: Left total knee arthroplasty. No evidence for hardware complication. ACT 112: Negative or not required by law. Electronically signed by: Shimon Rogers M.D. 01/20/2023 1:13 PM
--- NOTE | 2023-01-20 13:35 | Anesthesiology Progress Note ---
Date of Service January 20, 2023 Anesthesia Post Procedure Vital Signs Vital Signs: Temp Pulse Pulse Resp BP Pulse Ox O2 Del Method 01/20/23 13:20 36.6 C 65 22 113/65 94 Room Air 01/20/23 13:10 66 23 110/62 95 Oxymask 01/20/23 13:00 62 21 113/62 97 Oxymask 01/20/23 12:50 66 20 114/60 96 Oxymask 01/20/23 12:40 36.8 C 68 20 113/73 96 Oxymask 01/20/23 08:12 Room Air 01/20/23 08:12 37 C 58 L 18 126/77 99 Room Air O2 Flow Rate 01/20/23 13:20 01/20/23 13:10 2 01/20/23 13:00 2 01/20/23 12:50 4 01/20/23 12:40 6 01/20/23 08:12 01/20/23 08:12 Pain Intensity Left Knee: Pain Intensity: 3 Transfer of Care Handoff Completed per policy Notes Mental Status: alert / awake / arousable and participated in evaluation Nausea / Vomiting: adequately controlled Pain: adequately controlled Airway Patency, RR, SpO2: stable & adequate BP & HR: stable & adequate Hydration State: stable & adequate Neuraxial Anesthesia: was administered and sensory block is resolving Anesthetic Complications: no major complications apparent and Pt Satisfied with anesthetic care
[2023-01-20] MEDS ORDERED: METOCLOPRAMIDE HCL INJ 5 MG/ML 2 ML VIAL IV PRN (13:42)
[2023-01-20] MEDS ORDERED: HYDROmorphone INJ 0.5 MG/0.5 ML SYR IV PRN (13:42)
[2023-01-20] MEDS ORDERED: CYCLOBENZAPRINE HCL 10 MG TAB PO PRN (13:42)
[2023-01-20] MEDS ORDERED: ALPRAZolam 0.5 MG TABLET PO PRN (13:42)
[2023-01-20] MEDS ORDERED: MAGNESIUM HYDROXIDE SUSP 30 ML UDC PO PRN (13:42)
[2023-01-20] MEDS ORDERED: bisacodyL 10 MG SUPP PR PRN (13:42)
[2023-01-20] MEDS ORDERED: NALOXONE HCL 0.4 MG/1 ML VIAL/CARP IV PRN (13:42)
[2023-01-20] MEDS: SODIUM CHLORIDE 0.9% 1000ML 1,000 ML IV SCH (14:08)
[2023-01-20] MEDS: KETOROLAC TROMETHAMINE 15 MG/ML VIAL IV SCH ×2 (14:36→18:46)
[2023-01-20] MEDS: CEROVITE ADV FORMULA TAB PO SCH (14:37)
[2023-01-20] MEDS: ACETAMINOPHEN 500 MG TAB PO SCH ×2 (14:37→21:59)
[2023-01-20] MEDS: ceFAZolin 2000MG 2,000 MG/15 ML SYR IV SCH (18:43)
[2023-01-20] MEDS: DOCUSATE SODIUM 100 MG CAP PO SCH (20:07)
[2023-01-20] MEDS: ASPIRIN 81 MG ECTAB PO SCH (20:08)
[2023-01-20] MEDS ORDERED: SENNA 8.6 MG TAB PO SCH (21:00)
[2023-01-20] MEDS: oxyCODONE HCL IR 5 MG TAB (IMMEDIATE RELEASE) PO PRN (22:00)
[2023-01-21] MEDS: SODIUM CHLORIDE 0.9% 1000ML 1,000 ML IV SCH (01:27)
[2023-01-21] MEDS: oxyCODONE HCL IR 5 MG TAB (IMMEDIATE RELEASE) PO PRN (02:23)
[2023-01-21] MEDS: KETOROLAC TROMETHAMINE 15 MG/ML VIAL IV SCH ×2 (02:25→07:37)
[2023-01-21] MEDS: ceFAZolin 2000MG 2,000 MG/15 ML SYR IV SCH (02:27)
[2023-01-21] MEDS: ACETAMINOPHEN 500 MG TAB PO SCH (05:38)
[2023-01-21] MEDS: ASPIRIN 81 MG ECTAB PO SCH (07:36)
[2023-01-21] MEDS: DOCUSATE SODIUM 100 MG CAP PO SCH (07:36)
[2023-01-21] MEDS: CEROVITE ADV FORMULA TAB PO SCH (07:36)
[2023-01-21] MEDS ORDERED: dexAMETHasone 4 MG TAB PO SCH (08:00)
--- NOTE | 2023-01-21 08:07 | Orthopedic Progress Note ---
Date of Service January 21, 2023 Assessment & Plan (1) Status post left knee replacement: Overall he is doing very well. Is not having much pain in the left knee. He will be seen by physical therapy today for ambulation and range of motion exercises. He is on aspirin for DVT prophylaxis. He can be discharged home later today. He will follow-up with orthopedics in 2 weeks. Carolyn Franklin was seen and examined at bedside this morning. Overall he is doing very well. He is not having much pain in the left knee. He has been up and ambulating into the hallway. He has no complaints.. Review of Systems All systems reviewed & are unremarkable except as noted in HPI & below. Physical Exam On physical examination of the left knee, the dressing is clean and dry. His leg is out full extension. He has active dorsiflexion plantarflexion of his left ankle. Sensations intact throughout.. Results & Data Results & Data Laboratory Results . Diagnostic Findings Postoperative x-rays of the left knee show the prosthesis to be in anatomic alignment without any evidence of fracture, dislocation, or loosening.. PG Care Time/CCT Total # of Minutes Spent Total Time Spent with Patient: Total time spent is greater than 50% in coordination of care (as documented) at patient's floor/unit and/or counseling patient: Coding Level of Care Code 89824 Post Operative Follow-Up Diagnoses Status post left knee replacement Z96.652
--- NOTE | 2023-01-21 08:08 | Discharge Summary ---
Date of Service January 21, 2023 Admission HPI (Per Admitting) Rigoberto is a pleasant 72-year-old male who has been dealing with chronic increasing bilateral knee pain, left worse than right. It has been really bad for the past 6 months. He has been treated at the [place]. I gave him an injection at the last visit, which helped a little bit with his pain but not much. He is stillstruggling with his knee. X-rays show advanced osteoarthritis. After failing conservative treatment, he has elected to proceed with a left total knee arthroplasty. . Admission Exam (Per Admitting) On physical examination of left knee, he has slight varus deformity. Is a 2+ effusion. He is range of motion 0 to 120 degrees. He has pain over the medial joint line.. Principal Diagnosis Same as "Discharge Diagnosis" noted below under Discharge Instructions. Discharge Exam On physical examination of the left knee, the dressing is clean and dry. His leg is out full extension. He has active dorsiflexion plantarflexion of his left ankle. Sensations intact throughout.. Discharge Data Procedures Performed Operation Date: 01/20/23 10:00 Actual Procedures p Left Total Knee Arthroplasty(Left) - Martin Guaman DO Ordered Studies 01/20/23 05:00 US - OR guided needle placemen Routine Hospital Course (1) Status post left knee replacement: On January 20, 2023 Rigoberto arrived at [facility] and underwent a left knee replaced without complication. He had a spinal anesthetic. Postoperatively he was started on aspirin for DVT prophylaxis and transferred to the general orthopedic floors. His hospital course was uneventful. On postop day #1, his vital signs were stable and his pain was well controlled. He was able to participate well with physical therapy doing ambulation and range of motion exercises. He was then discharged home. He will follow-up with orthopedics in 2 weeks. PG Care Time/CCT Total # of Minutes Spent Total Time Spent with Patient: Total time spent is greater than 50% in coordination of care (as documented) at patient's floor/unit and/or counseling patient: Discharge Plan Discharge Items Patient Disposition: Home - Home Health Services Reason For Visit: DJD Left Knee Discharge Diagnosis: Left knee replacement Activity: Per Instructions section Non-emergency contact: Surgeon Call non-emergency contact if: your wound has increased redness and your wound has increased drainage Follow-up/Referrals: Torres Moreno MD [Primary Care Provider] - Diet: Regular Addtl Attending Provider Instructions: Activity and Therapy Recommendations: * If you are using [facility] then therapy will be provided at your home until they feel you have accomplished all of your goals. * If you are using [facility] then Physical Therapy will be provided until they feel you are ready to start Outpatient Physical Therapy. * If you are not using home therapy then Outpatient Physical Therapy should start about 3-5 days from your day of surgery. Therapy will last about 6-10 weeks * It is important not to put a pillow under your knee when you are relaxing or sleeping. It is just as important to make sure you are getting your knee perfectly straight as it is to regain your knee bend. * You were shown a series of exercises in the hospital. Do these exercises three times each day including the exercises you were shown in physical therapy. * Get up and walk several times each day. For the first four weeks, try not to stand or walk for more than one hour at a time. If you do stand or walk for more than one hour, you will not hurt anything, but your leg will likely swell. * As you feel comfortable, you may change from the walker or crutches to a cane and then to independent walking. Medications: * Narcotic You will likely be sent home from the hospital with a prescription for the narcotic pain medication that worked best throughout your stay. * Aspirin Most patients will be required to take Aspirin 81mg twice a day for 6 weeks after surgery. This is obtained [id number] and a prescription is not necessary. * Other medications may be prescribed for specific circumstances. If you have any questions, please call the office at . * Resume previous home medications unless otherwise instructed TEDs/Elastic Stockings: The white elastic stockings help limit swelling and prevent blood clots from forming in your legs.~ The more you wear them, the more they work. Wear them for six weeks. Dressing Care: The dressing can be changed after physical therapy on postop day #1. Daily dry dressing changes for a few days, especially if the incision is still draining some. If the incision is not draining then you may leave the sourav open to air. If there is a little bit of drainage or if the sourav are getting stuck on your clothing then cover the incision with a dry dressing. The sourav will be removed at your 2 week follow-up appointment. Showering: You may shower 5 days from the day of surgery as long as the incision is no longer draining. You may shower with the sourav exposed. Let soapy water run over the sourav and pat them dry. Do not scrub or soak the incision. Things To Watch For: * Drainage from the incision site that occurs more than one week after your surgery. * Increased redness at the incision site. * Fever above 102 degrees Fahrenheit. * Unusual chest pain or shortness of breath. * Call [facility] at with any of the above problems Follow-Up Visit: Follow-up with Dr. Guaman's PA (Martin Ttae) 2-3 weeks after your day of surgery. He will remove your sourav and answer any questions. If you have any additional questions or concerns, Dr Guaman is usually in the office at the same time and will be available An appointment was probably scheduled when you signed-up for surgery in the office. If you have any questions call Office Instructions: More detailed instructions as well as Frequently Asked Questions were provided in a folder by our office when you signed-up for surgery. Please review these instructions when you get home. If you have any further questions or concerns, please feel free to call the office at [phone] Pending Studies at Discharge: No Stand-Alone Forms: [email or web address], Smoking Cessation Medications and DC Order Prescriptions: New aspirin 81 mg Tablet,Delayed Release (Dr/Ec) 81 mg PO BID 42 Days Qty: 84 0RF oxycodone-acetaminophen 5-325 mg tablet 1 tab PO Q6H PRN (Reason: pain) Qty: 30 0RF Continued amlodipine 10 mg tablet 10 mg PO QAM pravastatin 80 mg tablet 80 mg PO QAM alprazolam 0.5 mg tablet 0.5 mg PO QID PRN (Reason: Anxiety) meloxicam 15 mg tablet 7.5 mg PO BID cyclobenzaprine 10 mg tablet 10 mg PO HS PRN (Reason: muscle spasms) PreserVision AREDS-2 250-90-40-1 mg Capsule 1 tab PO BID Admission Data Admit Date/Time: 01/20/23 12:45 Attending Provider: Martin Guaman Admit Provider: Martin Guaman Primary Care Provider: Torres Moreno
[2023-01-21] MEDS ORDERED: MULTIVITAMIN TAB PO SCH (09:00)
[2023-01-21] MEDS ORDERED: PRAVASTATIN SOD 40 MG TAB PO SCH (09:00)
[2023-01-21] MEDS ORDERED: amLODIPine BESYLATE 5 MG TAB PO SCH (09:00)
== END 2023-01-21 11:35 | disposition home health service (06) ==
LOC: 3N 07:25 → ASU 07:25